=== PATIENT | male | born 1975 | race African-American/Black ===

== ENCOUNTER 2020-12-28 14:23 | Outpatient (REF) | payer OTHER, SELFPAY ==
--- NOTE | ~2020-12-28 | XR_ITS ---
EXAMINATION: LEFT FOOT AND ANKLE 6 VIEWS CLINICAL INFORMATION: Pain. COMPARISON: None. TECHNIQUE: AP, lateral, oblique views of the left foot were obtained in addition to AP, lateral and oblique views of the left ankle. FINDINGS: There are no fractures or dislocations. There is no significant soft tissue swelling. No ankle joint effusion is identified. XR/XR foot LT min 3V IMPRESSION: Unremarkable left foot and ankle radiographs.
--- NOTE | ~2020-12-28 | XR_ITS ---
EXAMINATION: LEFT FOOT AND ANKLE 6 VIEWS CLINICAL INFORMATION: Pain. COMPARISON: None. TECHNIQUE: AP, lateral, oblique views of the left foot were obtained in addition to AP, lateral and oblique views of the left ankle. FINDINGS: There are no fractures or dislocations. There is no significant soft tissue swelling. No ankle joint effusion is identified. XR/XR ankle LT min 3V IMPRESSION: Unremarkable left foot and ankle radiographs.
== END 2020-12-28 14:24 | disposition home or self-care (01) ==
LOC: HO.HMGCX 14:23
PROVIDERS: Visit Provider Hospitalist
DX: M25.572 Pain in left ankle and joints of left foot (principal)
CPT/HCPCS: 73610; 73630